=== PATIENT | female | born 1955 | race Caucasian/White ===

== ENCOUNTER 2018-06-24 07:41 | Day surgery (SDC) | payer BC ==
[2018-06-23 12:35] VITALS: BMI 22.4
[2018-06-24 09:54] VITALS: TEMP 97.5
[2018-06-24 10:55] VITALS: BP 102/56; PULSE 60
--- NOTE | 2018-06-27 16:14 | PATH ---
Surgical Pathology Report Patient Name: JARED DUFFY [facility]. Rec. #: [id number] /Age/Gender: 1955 (Age: 63) / F Account: [id number] Location: [facility]-ENDOSCOPY Taken: 06/24/2018 Received: 06/24/2018 Reported: 06/27/2018 Physicians: Albert Martinez M.D. Specimen(s) Received BX TRANSVERSE COLON POLYP Clinical History Screening, change in bowel pattern, abdominal bloating Postoperative diagnosis: Diverticulosis, colon polyp, hemorrhoids Final Diagnosis TRANSVERSE COLON POLYP, POLYPECTOMY: TUBULAR ADENOMA. Electronically Signed Sherry Biggs M.D. Gross Description Received in formalin, labeled with the patient's name and indicated on the requisition to be a transverse colon polyp biopsy are 3 da silva, irregular portions of soft tissue ranging from 0.1-0.3 cm. in greatest dimension. The specimens are submitted in toto in one cassette. /06/24/201806/24/2018
== END 2018-06-24 10:30 | disposition home or self-care (01) ==
LOC: JASU-ENDO 07:41
PROVIDERS: ATTEND Internal Medicine Gastroenterology
PROC: 0DBL8ZX Excision of Transverse Colon, Via Natural or Artificial Opening Endoscopic, Diagnostic (ICD-10-PCS; principal; 2018-06-24 08:45)
DX: Z12.11 Encounter for screening for malignant neoplasm of colon (principal); D12.3 Benign neoplasm of transverse colon; K57.30 Diverticulosis of large intestine without perforation or abscess without bleeding
CPT/HCPCS: 88305-TC

== ENCOUNTER 2025-02-16 06:17 | Day surgery (SDC) | payer OTHER ==
[2025-02-14 10:32] VITALS: BMI 21.9
[2025-02-16] MEDS ORDERED: PROPOFOL 20 ML ONE ×2 (08:06→08:27)
[2025-02-16] MEDS ORDERED: MIDAZOLAM HCL 2 MG/2 ML SINGLE DOSE VIAL ONE (08:07)
[2025-02-16] MEDS ORDERED: ROCURONIUM BROMIDE 50 MG/5 ML SYRINGE ONE (08:20)
[2025-02-16] MEDS: BUPIVACAINE HCL/PF 0.25% (2.5MG/ML) 10 ML VIAL IJ ONE ×2 (08:46→09:00)
[2025-02-16 14:27] VITALS: RESP 20
[2025-02-16 14:29] VITALS: BP 122/73; PULSE 70; TEMP 98.2
== END 2025-02-16 12:35 | disposition home or self-care (01) ==
LOC: JASU-SURG 06:17
PROVIDERS: ATTEND Surgery
PROC: 0FT44ZZ Resection of Gallbladder, Percutaneous Endoscopic Approach (ICD-10-PCS; principal; 2025-02-16 08:00)
DX: K80.10 Calculus of gallbladder with chronic cholecystitis without obstruction (principal)
CPT/HCPCS: 88304-TC; 88342-TC; 94760